=== PATIENT | female | born 1950 | race Caucasian/White ===

== ENCOUNTER 2017-04-24 01:14 | Emergency (ER) | payer OTHER ==
[2017-04-24] MEDS ORDERED: Lidocaine 1% 20 ML MDV INJECT ONE (01:29)
[2017-04-24] MEDS ORDERED: Lidocaine 1% 10 ML MDV INJECT ONE (01:33)
[2017-04-24] MEDS ORDERED: Lidocaine 1% 10 ML MDV ONE (01:36)
--- NOTE | 2017-04-24 02:09 | EDM.PDOC ---
ED HPI GENERAL MEDICAL PROBLEM - General Chief Complaint: Laceration Stated Complaint: LACERATION TO HEAD Time Seen by Provider: 04/24/17 01:15 Source of Information: Reports: Patient, Family History Limitations: Reports: No Limitations - History of Present Illness INITIAL COMMENTS - FREE TEXT/NARRATIVE: This is a 66-year-old female. She apparently fell this evening while wearing her glasses and she has a laceration to the bridge of her nose with a circular laceration going to the right side of her nasal bridge for a total of approximately 5 cm. She denies any loss of consciousness. She denies any other acute symptoms. She does have a big pump not right in the center of her forehead above the laceration. Her nose did not bleed when she fell on her nose she denies any change in her vision denies any tooth pain or jaw pain. She states she did not hurt anything else. She states she is up-to-date with her tetanus. Face Pain Score (Numeric/FACES): 1 - Related Data Allergies Allergy/AdvReac Type Severity Reaction Status Date / Time No Known Allergies Allergy Verified 04/24/17 01:20 Home Meds: Home Meds Simvastatin [Zocor] 20 mg PO BEDTIME 04/24/17 [History] Triamterene/Hydrochlorothiazid [Triamterene-HCTZ 37.5-25 MG] 04/24/17 [History] Past Medical History Cardiovascular History: Reports: High Cholesterol, Hypertension - Past Surgical History GI Surgical History: Reports: Appendectomy Social & Family History - Family History Family Medical History: Noncontributory - Tobacco Use Smoking Status *Q: Unknown Ever Smoked ED ROS GENERAL - Review of Systems Review Of Systems: See Below Constitutional: Reports: No Symptoms HEENT: Reports: Other (As per history of present illness) Respiratory: Reports: No Symptoms Cardiovascular: Reports: No Symptoms Endocrine: Reports: No Symptoms GI/Abdominal: Reports: No Symptoms : Reports: No Symptoms Musculoskeletal: Reports: No Symptoms Skin: Reports: Other (as per history of present illness) Neurological: Reports: No Symptoms Psychiatric: Reports: No Symptoms Hematologic/Lymphatic: Reports: No Symptoms ED EXAM, SKIN/RASH Exam: See Below Exam Limited By: No Limitations General Appearance: Alert, WD/WN, No Apparent Distress Eye Exam: Right Eye: Other (She is developing some bruising already in the inner canthus of the right eye), Bilateral Eye: Normal Inspection Ears: Normal External Exam Nose: Other (She has and the bridge of the nose a 1 cm laceration that connects up to a circular laceration that starts at her center of her eyebrows in the center of her forehead and comes down the right side of her nose in a circular fashion that is about 4 cm long) Throat/Mouth: Normal Inspection Head: Facial Swelling, Other (She has a pump not right in the center of her forehead noted) Neck: Supple, Non-Tender Respiratory/Chest: No Respiratory Distress Back Exam: Full Range of Motion Extremities: Normal Inspection, Normal Range of Motion Neurological: Alert, Oriented Psychiatric: Normal Affect, Normal Mood Skin: Warm, Dry ED SKIN PROCEDURES - Laceration/Wound Repair Right Nose Lac/Wound length In cm: 5 Appearance: Subcutaneous, Linear, Stellate, Clean Distal NVT: Neuro & Vascular Intact Anesthetic Type: Local Local Anesthesia - Lidocaine (Xylocaine): 1% Plain Local Anesthetic Volume: Other (6 cc) Skin Prep: Providone-Iodine (Betadine), Saline, Sterile Drape Exploration/Debridement/Repair: Wound Explored Closed with: Sutures Suture Size: other (6-0) Suture Type: Nylon, Running Drain Placement: No Sterile Dressing Applied: Nurse Tetanus Status Addressed: Yes Complications: No Progress/Comments: The vertical and laceration on the bridge of the nose took 4 running sutures, the circular laceration that wraps around to the right side of her nose took 14 running sutures for a total of 18 running sutures for the laceration. There is good skin approximation noted where the 2 lacerations met in a stellate fashion that area was pulled together nicely. Course - Vital Signs Last Recorded V/S: Last Vital Signs Temp 98.2 F 04/24/17 01:20 Pulse 88 04/24/17 01:20 Resp 18 04/24/17 01:20 BP 142/80 H 04/24/17 01:20 Pulse Ox 100 04/24/17 01:20 - Orders/Labs/Meds Meds: Medications Discontinued Medications Generic Name Dose Route Start Last Admin Trade Name Freq PRN Reason Stop Dose Admin Lidocaine HCl 20 ml 04/24/17 01:29 Xylocaine 1% INJECT 04/24/17 01:30 ONETIME ONE Lidocaine HCl Confirm 04/24/17 01:36 Xylocaine 1% Administered 04/24/17 01:37 Dose 10 ml .ROUTE .STK-MED ONE Lidocaine HCl 10 ml 04/24/17 01:33 Xylocaine 1% INJECT 04/24/17 01:34 ONETIME ONE - Re-Assessments/Exams Free Text/Narrative Re-Assessment/Exam: 04/24/17 02:15 Patient tolerated the procedure well. I went over the signs of infection and that she needs to see her doctor or return to the ER if there is any signs of infection, I also warned her that she is going to develop black eyes from the bruise on her forehead draining down than the laceration to her nose draining underneath her eyes. I suggested Tylenol for pain or ibuprofen or Aleve if needed. I also spoke to her about the care of the laceration keeping it clean and dry for the next 2-3 days and only using soap and water gently to the laceration. She is also to follow up with her family doctor when she gets home on Wednesday for removal of the sutures in 5-7 days. Departure - Departure Time of Disposition: 02:06 Disposition: Home, Self-Care 01 Condition: Good Clinical Impression: Laceration of forehead without complication Qualifiers: Encounter type: initial encounter Qualified Code(s): S01.81XA - Laceration without foreign body of other part of head, initial encounter Laceration of nose without complication Qualifiers: Encounter type: initial encounter Qualified Code(s): S01.21XA - Laceration without foreign body of nose, initial encounter - Discharge Information Instructions: Laceration Care, Adult, [id number] Referrals: PCP,Not In Area [Primary Care Provider] - Forms: ED Department Discharge Additional Instructions: Keep the wound clean and dry for the next 2 days, then gently wash it with soap and water as desired, watch for infection such as redness marked increased swelling or yellow purulent drainage and if any these occur see your doctor immediately or return to the ER immediately, take Tylenol or ibuprofen or Aleve as needed for soreness, you need to have the sutures removed in 5-7 days by your family physician, return to the ER if needed
== END 2017-04-24 02:15 | disposition home or self-care (01) ==
LOC: JD.ED 01:14
DX: S01.21XA Laceration without foreign body of nose, initial encounter (principal); S01.81XA Laceration without foreign body of other part of head, initial encounter; I10 Essential (primary) hypertension; E78.00 Pure hypercholesterolemia, unspecified; W18.02XA Striking against glass with subsequent fall, initial encounter
CPT/HCPCS: 12013; 99282-25; 99283-25